=== PATIENT | male | born 1965 | race Caucasian/White ===

== ENCOUNTER 2016-11-30 21:03 | Emergency (ER) | payer OTHER ==
[~2016-11-30] VITALS: Ht 175.3 cm; Wt 81.6 kg
[2016-11-30 21:05] VITALS: BP 147/101; PULSE 108; RESP 20; TEMP 97.4; O2SAT 96
--- NOTE | 2016-11-30 21:05 | NUR ---
Patient to ER bed 6 to gown for evaluation. Side rails up. Report given to Sebastian ROSE.
--- NOTE | 2016-11-30 21:10 | NUR ---
Patient BIB family after laceration to left hand , with cutting down mangos, severe bleeding. EMT and Myself held pressure and controlled bleeding.
--- NOTE | 2016-11-30 21:35 | NUR ---
ER at bedside examining patient. and doing lac repair
[2016-11-30 22:20] VITALS: BP 133/89; PULSE 89; RESP 18; TEMP 98.1; O2SAT 99
--- NOTE | 2016-11-30 22:20 | NUR ---
Patient given written and verbal discharge instructions and verbalizes understanding. ER MD discussed with patient the results and treatment provided. Patient in stable condition. ID arm band removed. Rx of Naprosyn given. Patient educated on pain management and to follow up with PMD. Pain Scale 0/10. Opportunity for questions provided and answered.
== END 2016-11-30 22:20 | disposition home or self-care (01) ==
LOC: SED 21:03
DX: S61.412A Laceration without foreign body of left hand, initial encounter (principal); W45.8XXA Other foreign body or object entering through skin, initial encounter; Y93.89 Activity, other specified; Y92.89 Other specified places as the place of occurrence of the external cause; Y99.8 Other external cause status
CPT/HCPCS: 99283